=== PATIENT | female | born 1990 | race Two or more races ===

== ENCOUNTER 2022-01-25 14:00 | Inpatient (IN) | payer OTHER ==
[~2022-01-25] VITALS: Ht 152.4 cm; Wt 3.2 kg
[2022-02-09] MEDS ORDERED: PRENATAL CAPLE1 EAC1 PO (11:33)
== END 2022-02-11 13:48 | disposition home or self-care (01) | DRG 788 ==
LOC: LDR 02-08 14:00 → OB/GYN 02-09 16:20
PROVIDERS: ADMIT Obstetrics & Gynecology; ATTEND Obstetrics & Gynecology
PROC: 4A1HXCZ Monitoring of Products of Conception, Cardiac Rate, External Approach (ICD-10-PCS; 2022-02-09)
PROC: 3E033VJ Introduction of Other Hormone into Peripheral Vein, Percutaneous Approach (ICD-10-PCS; 2022-02-09)
PROC: 10D00Z1 Extraction of Products of Conception, Low, Open Approach (ICD-10-PCS; principal; 2022-02-09 16:00)
DX: O61.0 Failed medical induction of labor (principal); O64.0XX0 Obstructed labor due to incomplete rotation of fetal head, not applicable or unspecified; Z3A.40 40 weeks gestation of pregnancy; Z37.0 Single live birth; Z20.822 Contact with and (suspected) exposure to COVID-19